=== PATIENT | female | born 1955 | race Caucasian/White ===

== ENCOUNTER 2024-01-08 21:16 | Emergency (ER) | payer MEDICARE ==
[~2024-01-08 21:16] MED LIST: TETANUS-DIPHTHERIA TOX (PF) 0.5 ML VIAL IM ONE
[2024-01-08] MEDS ORDERED: ACETAMINOPHEN TAB 500 MG TAB ONE (22:54)
== END 2024-01-09 07:33 | disposition home or self-care (01) ==
LOC: EC 21:16
CPT/HCPCS: 70450; 90714; 96372; 99283